=== PATIENT | female | born 2000 | race Two or more races ===

== ENCOUNTER 2025-06-28 21:27 | Emergency (ER) | payer MEDICAID, SELFPAY ==
[2025-06-28 21:28] VITALS: BMI 37.2
[2025-06-28 22:17] VITALS: BP 145/83; PULSE 60; RESP 18; TEMP 36.6; O2SAT 100
[2025-06-29 02:01] VITALS: BP 147/84; PULSE 61; RESP 18; TEMP 36.5; O2SAT 100
--- NOTE | 2025-06-29 02:22 | EDNOTE_ITS ---
ED Skin Abcess FB-RME/HPI General Chief complaint: Skin/Abscess/Foreign Body Stated complaint: STEPPED ON NAIL LEFT FOOT Time Seen by Provider: 06/29/25 02:12 Arrival date/time: 06/28/25 21:27 24F with no significant PMH presents to ED with L foot pain after she stepped on metal nail. Patient states she took the entire nail out. Patient has not had a tetanus shot in the past 5 years. Limitations: no limitations Related Data Previous Rx's ?Medication ?Instructions ?Recorded amoxicillin 875 mg-potassium 1 tab PO BID 5 days #10 t abs 06/29/25 clavulanate 125 mg tablet Allergies Allergy/AdvReac Type Severity Reaction Status Date / Time No Known Allergies Allergy Verified 04/14/19 19:42 Review of Systems Review of Systems Systems Reviewed: All systems reviewed, normal except as documented Constitutional Constitutional: Reports system reviewed and no additional complaints, except as documented, Denies fever(s) and Denies headache(s) ENT Ears, Nose, Mouth, and Throat: Denies disequilibrium and Denies headache(s) Cardiovascular Cardiovascular: Reports system reviewed and no additional complaints, except as documented, Denies chest pain and Denies dyspnea Respiratory Respiratory: Reports system reviewed and no additional complaints, except as documented, Denies cough and Denies dyspnea Gastrointestinal Gastrointestinal: Reports system reviewed and no additional complaints, except as documented, Denies abdominal pain, Denies nausea and Denies vomiting Integumentary/Breasts Skin/Breast: Reports as per HPI and Reports skin pain Neurologic Neurologic: Reports system reviewed and no additional complaints, except as documented, Denies confusion, Denies disequilibrium and Denies headache(s) Psychiatric Psychiatric: Denies confusion Past Medical History Social History SMOKING STATUS: Never smoker ED Exam General Limitations: Present no limitations General appearance: Present alert and in no apparent distress Head Head exam: Present atraumatic Eye Eye exam: Present normal appearance, PERRL and EOMI ENT ENT exam: Present normal exam, normal oropharynx and mucous membranes moist Neck Neck exam: Present normal inspection, full ROM and trachea midline Chest Chest inspection: Present normal inspection and symmetric chest wall rise Respiratory Respiratory exam: Present normal lung sounds bilaterally Cardiovascular Cardiovascular exam: Present regular rate, normal rhythm and normal heart sounds Abdominal Exam Abdominal exam: Present soft and normal bowel sounds Extremities Exam Extremities exam: Present full ROM Expanded Lower Extremity Exam Foot/toe exam: Present full ROM and puncture wound (L sole) Back Exam Back exam: Present normal inspection and full ROM Neurological Exam Neurological exam: Present alert, oriented X3 and CN II-XII intact Psychiatric Psychiatric exam: Present normal affect and normal mood Skin Skin exam: Present warm, dry, intact and normal color Course Quality Measures none Orders Category Date Time Status TET,DIP/PERT AC (Adult)-Tdap [Boostrix Adult (Tdap) Med 06/29/25 02:12 Discontinued Vacc] 0.5 ml IMI .ONCE ONE Vital Signs Vital signs: Vital Signs Temperature 97.8 F 06/28/25 22:17 Pulse Rate 60 06/28/25 22:17 Respiratory Rate 18 06/28/25 22:17 Blood Pressure 145/83 H 06/28/25 22:17 Pulse Oximetry (%) 100 06/28/25 22:17 Oxygen Delivery Method Room Air 06/28/25 22:17 O2 at 100% on RA and WNLs Skin / Abscess / Foreign Body MDM Narrative MDM Narrative:: 24F with no significant PMH presents to ED with L foot pain after she stepped on metal nail. Patient states she took the entire nail out. Patient has not had a tetanus shot in the past 5 years. Physical exam reveals puncture wound on L sole. No obvious redness or swelling. Patient is afebrile, calm, and alert. Tdap and ABX prophylaxis given. Patient data External records reviewed:: [facility] previous records Clinical information provided by:: patient Social determinants that could affect healthcare access:: none Patient has the following chronic illnesses:: none How is presenting disease/condition affected by chronic disease/condition?: no chronic disease Evaluation data The following diagnostics were reviewed and interpreted by me:: other (specify) (none) Lab and/or radiology exams considered but not ordered:: not ordered Interpretation Summary: n/a Medications / Prescriptions Medications or Prescriptions considered but not ordered:: ordered Medication administrations:: Medication Administration History Discontinued Medications Diphtheria/Tetanus/Acell Pertussis (Diphth,Pertuss(Acell),Tet Vac 0.5 Ml Syr- Adult) 0.5 ml IMi .ONCE ONE Stop: 06/29/25 02:13 above Consultations Consultation(s) initiated? (list below): No Diagnosis Skin/Abscess Differential Diagnosis: abscess of skin or subcutaneous tissue, viral exanthem, dermatophytosis, urticaria, herpes zoster, allergic reaction to drug, cellulitis, eczema, insect bites, impetigo and contact dermatitis Most likely diagnosis given after review of the tests above:: puncture wound of foot Admission Indicated Admission indicated?: not indicated Admission Request Was there a request for admission?: No Disposition Plan Disposition Plan: Discharge Discharge Attestation Discharge Attestation: The patient and all family members were given an opportunity to ask questions and understood the discharge instructions. Discharge instructions specifically effects, indications for sooner follow up or return to the emergency department, and the expected course of current diagnosis. Patient condition: Stable Discharge Plan Plan Patient Disposition: HOME (Self Care) Discharge Disposition comment: Stable Prescriptions/Referrals Prescriptions/Med Rec: New amoxicillin-pot clavulanate 875-125 mg tablet 1 tab PO BID 5 Days Qty: 10 0RF Problem List Clinical Impression: Puncture wound of foot Patient/Caregiver Discharge Instructions Education Materials: ED Puncture Wound (Foot) Additional Instructions: Please follow-up with PCP within 24-48 hours and return immediately if symptoms worsen. Print Language: Micronesian Stand Alone Forms: Patient Portal Info Letter RADU/KASSIE Supervising Physician LUKE Supervising Physician: Dr. Barrett
[2025-06-29] MEDS: DIPHTH,PERTUSS(ACELL),TET VAC 0.5 ML SYR- ADULT IMi (02:35)
== END 2025-06-29 02:40 | disposition home or self-care (01) ==
PROVIDERS: Emergency Provider Emergency Medicine
DX: S91.332A Puncture wound without foreign body, left foot, initial encounter (principal); W45.0XXA Nail entering through skin, initial encounter; Z23 Encounter for immunization
CPT/HCPCS: 90471; 90715; 99281

== ENCOUNTER 2025-10-20 19:43 | Emergency (ER) | payer MEDICAID, SELFPAY ==
[2025-10-20 19:45] VITALS: BMI 38.7
[2025-10-20 20:04] VITALS: BP 140/91; PULSE 67; RESP 18; TEMP 37.1; O2SAT 99
--- NOTE | 2025-10-20 20:10 | XR_ITS ---
Examination: Hand, right 3 views Technique: Hand AP, oblique, lateral 3 views Date and time of exam: October 20, 2025, 2008 hours INDICATIONS: Injury to the hand today, hand pain. FINDINGS: Acute impacted fracture fifth metacarpal neck No foreign body No dislocation IMPRESSION: Acute impacted angulated fracture fifth metacarpal neck
[2025-10-20 21:06] LABS: Collection Type, Urine Clean Catch
--- NOTE | 2025-10-20 21:10 | XR_ITS ---
Examination: Complete OB ultrasound, less than 14 weeks, transabdominal Date and time of exam: October 20, 2025, 2132 hours INDICATIONS: Pelvic cramping beginning yesterday Technique: Obstetrical ultrasound images less than 14 weeks performed via transabdominal imaging Findings: A normal shaped single intrauterine gestation is present in the uterus. Uterus 8.1 cm, intrauterine gestational sac 0.4 cm corresponds to 5 weeks 1 day gestational age No pole, no cardiac activity Right ovary 4.5 cm arterial flow 36 mm cyst Left ovary 2.1 cm arterial flow IMPRESSION: Empty intrauterine gestational sac corresponding to 5 weeks 1 day gestational age, recommend continued short-term follow-up to document viability
[2025-10-20 21:11] LABS: Basophils # (Auto) 0.0 Thou/mm3 (0.0-0.2); Basophils % (Auto) 0 % (0-2.5); Eosinophils # (Auto) 0.1 Thou/mm3 (0.0-0.5); Eosinophils % (Auto) 1 % (0-10); Hematocrit 37.5 % (36.0-46.0); Hemoglobin 12.9 g/dL (12.0-16.0); Immature Granulocytes Auto 0.03 Thou/mm3 (0.00-0.00); Lymphocytes # (Auto) 2.5 Thou/mm3 (1.0-4.8); Lymphocytes % (Auto) 25 % (10-50); Mean Corpuscular HGB Conc 34.4 g/dl (31.0-37.0); Mean Corpuscular Hemoglobin 30.0 pg (25.0-35.0); Mean Corpuscular Volume 87 fL (80-100); Monocytes # (Auto) 0.6 Thou/mm3 (0.0-0.8); Monocytes % (Auto) 7 % (0-12); Neutrophils # (Auto) 6.5 Thou/mm3 (1.8-7.7); Neutrophils % (Auto) 67 % (37-80); Nucleated Red Blood Cell # 0.00 Thou/mm3 (0.00-0.00); Nucleated Red Blood Cell % 0 /100 WBC (0); Platelet Count 313 Thou/mm3 (140-440); RDW Standard Deviation 40.8 fL (36.4-46.3); Red Blood Count 4.30 Miln/mm3 (4.00-5.20); White Blood Count 9.7 Thou/mm3 (3.6-11.0)
[2025-10-20 21:15] LABS: HCG Qualitative,Urine Positive
[2025-10-20 21:21] LABS: Amorphous Crystals,Urine Present (Absent); Bacteria,Urine Rare; Bilirubin,Urine Negative (Negative); Blood,Urine Negative (Negative); Clarity,Urine Clear (Clear/Hazy); Color,Urine Lt-Yellow (Lt Yel-Yel); Glucose, Urine Negative (Negative); Ketones,Urine Negative (Negative); Leukocyte Esterase,Urine Positive (Negative); Nitrite,Urine Negative (Negative); PH,Urine 6.0 (5.0-7.0); Protein,Urine Negative (Neg - Trace); RBC,Urine 3 /hpf (0-3); Specific Gravity,Urine 1.009 (1.001-1.035); Squamous Epithelial Cell,Urine 7 /hpf (0-5); Urobilinogen,Urine Negative mg/dL (0.0-1.0); WBC,Urine 2 /hpf (0-5)
[2025-10-20 21:37] LABS: Alanine Aminotransferase 35 U/L (10-49); Albumin, Serum 4.6 gm/dL (3.5-5.0); Albumin/Globulin Ratio 1.6 (1.2-2.2); Alkaline Phosphatase 114 U/L (46-116); Anion Gap 11 (7-16); Aspartate Amino Transferase 26 U/L (0-34); BUN/Creatinine Ratio 12 Ratio (12-20); Bilirubin,Total 0.2 mg/dL (0.3-1.2); Blood Urea Nitrogen 7 mg/dL (9-23); Calcium 9.2 mg/dL (8.3-10.6); Calcium (Corrected) 9.2 mg/dL (8.5-10.1); Carbon Dioxide 22.4 mMol/L (20.0-31.0); Chloride 108 mMol/L (98-107); Creatinine (Component) 0.6 mg/dL (0.6-1.3); Estimated Creatinine Clearance 162.4 mL/min (>60); Globulin 2.8 gm/dL (2.3-3.5); Glucose 103 mg/dL (74-106); Lipase 37 U/L (12-53); Osmolality,Calculated 279 (275-295); Potassium 3.5 mMol/L (3.4-5.1); Sodium 141 mMol/L (136-145); Total Protein 7.4 gm/dL (5.7-8.2); eGFR > 60 See Note
[2025-10-20 21:53] LABS: Beta HCG,Quantitative 1651 mIU/mL (<5.0)
[2025-10-20 23:16] VITALS: BP 139/90; PULSE 69; RESP 20; TEMP 37.2; O2SAT 100
--- NOTE | 2025-10-20 23:25 | EDNOTE_ITS ---
Upper Extremity Injury RME/HPI General Chief Complaint: Hand/Wrist Problems Stated Complaint: RIGHT HAND INJURY Time Seen by Provider: 10/20/25 19:44 Arrival date/time: 10/20/25 19:43 This is a case of 35-year-old female with no medical history came in in the emergency room due to right hand injury patient was supposed to be punching a punching bag and accidentally missed the punching bag and hit a metal part of the punching sustaining pain swelling on the right dorsal hand patient also stated that she is having pelvic pain she is possible she took a test today and it went to positive 1 para 0 denies any vaginal bleeding vaginal discharge fever chills nausea vomiting persistent of the pain thus patient decided to sought consult here in the emergency ROOM Limitations: no limitations Related Data Allergies Allergy/AdvReac Type Severity Reaction Status Date / Time No Known Allergies Allergy Verified 10/20/25 19:44 Review of Systems Review of Systems Systems Reviewed: All systems reviewed, normal except as documented Constitutional Constitutional: Reports system reviewed and no additional complaints, except as documented and Reports as per HPI Cardiovascular Cardiovascular: Reports system reviewed and no additional complaints, except as documented and Reports as per HPI Respiratory Respiratory: Reports system reviewed and no additional complaints, except as documented and Reports as per HPI Gastrointestinal Gastrointestinal: Reports system reviewed and no additional complaints, except as documented and Reports as per HPI Musculoskeletal Musculoskeletal: Reports system reviewed and no additional complaints, except as documented and Reports as per HPI Neurologic Neurologic: Reports system reviewed and no additional complaints, except as documented and Reports as per HPI Past Medical History Social History SMOKING STATUS: Never smoker ED Exam General Limitations: Present no limitations General appearance: Present alert, in no apparent distress and other (Patient is awake alert oriented not in distress nontoxic looking well-hydrated well- nourished) Head Head exam: Present atraumatic, normocephalic and normal inspection Eye Eye exam: Present normal appearance, PERRL and EOMI ENT ENT exam: Present normal exam, normal oropharynx and mucous membranes moist Neck Neck exam: Present normal inspection, full ROM and trachea midline; Absent tenderness, meningismus, lymphadenopathy or thyromegaly Chest Chest inspection: Present normal inspection and symmetric chest wall rise; Absent tenderness, rash or abscess Respiratory Respiratory exam: Present normal lung sounds bilaterally; Absent respiratory distress, wheezes, stridor, accessory muscle use or prolonged expiratory phase Cardiovascular Cardiovascular exam: Present regular rate, normal rhythm and normal heart sounds; Absent bradycardia, tachycardia, irregular rhythm, systolic murmur or diastolic murmur Abdominal Exam Abdominal exam: Present soft, normal bowel sounds and other (Gravid uterus normal active bowel sounds); Absent distention, tenderness, guarding, rebound, rigidity, diminished bowel sounds, hyperactive bowel sounds, hypoactive bowel sounds or organomegaly Extremities Exam Extremities exam: Present normal inspection and full ROM Expanded Upper Extremity Exam Forearm/Wrist exam: Present normal inspection and full ROM; Absent tenderness, swelling, abrasion, laceration, ecchymosis, deformity, crepitus, dislocation, erythema, tenderness over anatomical snuff box or pain with axial thumb loading Hand exam: Present tenderness, swelling, deformity and other (Noted moderate tenderness on palpation on the lateral side dorsal aspect right hand with angular deformity mild swelling ROM limited pulses were full and equal capillary refill less than 2 seconds sensory intact no snuffbox tenderness); Absent abrasion, laceration, skin avulsion, ecchymosis, crepitus, dislocation, erythema, amputation, nail avulsion or subungual hematoma Back Exam Back exam: Present normal inspection and full ROM Neurological Exam Neurological exam: Present alert, oriented X3, CN II-XII intact, normal gait and reflexes normal; Absent motor sensory deficit Psychiatric Psychiatric exam: Present normal affect and normal mood Skin Skin exam: Present warm, dry, intact, normal color and other (Excellent skin turgor) Course Quality Measures none Orders Category Date Time Status US OB <= 14 weeks fetus Stat Exams 10/20/25 21:10 Completed XR hand RT 2V Stat Exams 10/20/25 20:10 Completed Beta HCG,Quantitative Stat Lab 10/20/25 20:35 Completed CBC Stat Lab 10/20/25 20:35 Completed Comprehensive Metabolic Panel Stat Lab 10/20/25 20:35 Completed HCG Qualitative,Urine Stat Lab 10/20/25 20:43 Completed Lipase Stat Lab 10/20/25 20:35 Completed Urinalysis Stat Lab 10/20/25 20:43 Completed Vital Signs Vital signs: Vital Signs Temperature 98.8 F 10/20/25 20:04 Pulse Rate 67 10/20/25 20:04 Respiratory Rate 18 10/20/25 20:04 Blood Pressure 140/91 H 10/20/25 20:04 Pulse Oximetry (%) 99 10/20/25 20:04 Oxygen Delivery Method Room Air 10/20/25 20:04 Oxygen saturation is 99% in room air Extremity Injury MDM Narrative MDM Narrative:: This is a case of 35-year-old female with no medical history came in in the emergency room due to right hand injury patient was supposed to be punching a punching bag and accidentally missed the punching bag and hit a metal part of the punching sustaining pain swelling on the right dorsal hand patient also stated that she is having pelvic pain she is possible she took a test today and it went to positive 1 para 0 denies any vaginal bleeding vaginal discharge fever chills nausea vomiting persistent of the pain thus patient decided to sought consult here in the emergency ROOM physical examination patient is awake alert oriented not in distress nontoxic looking well-hydrated well-nourished abdominal exam gravid uterus normal active bowel sounds no guarding no rebound no rigidity no tenderness patient noted to have moderate tenderness and swelling on the lateral aspect of the right hand no crepitation with mild angular deformity no redness mild swelling ROM is limited pulses were full and equal capillary refill less than 2 seconds sensory intact the rest of the physical examination neurological exam is normal and unremarkable x-ray of the right hand showed Acute impacted angulated fracture fifth metacarpal neck patient blood test showed no leukocytosis no anemia kidney and liver function is normal no electrolyte imbalance urinalysis is normal patient is O+ patient noted beta-hCG 1651 and ultrasound Empty intrauterine gestational sac corresponding to 5 weeks 1 day gestational age, at this point I think the patient is too early cannot totally rule out ectopic months since the spontaneous or early or threatened I discussed with the patient importance to return in the emergency room next week for repeat beta-hCG and pelvic ultrasound to confirm the location of the patient was applied a ulnar gutter splint for the metacarpal fracture patient tolerated well neurovascular intact she was advised to follow- up with PCP to be referred to orthopedic surgeon for further evaluation and treatment of metacarpal fracture she is also advised to to see a OB managed services consultant for further evaluation and treatment of abdominal pain in and checkup continue multivitamins for any worsening symptoms or any emergent concern return precaution in the ER is advised Patient was discharged with comfortable condition walking with stable gait. Pat ient verbalized no further complains explained diagnosis and answered patient question. Patient is comfortable with the proposed management plan including the need to follow up with his/her primary care physician and any specialist if applicable Discussed patient for any urgent condition or worsening sx, He/She needed to go to emergency room immediately or call 911. Patient acknowledge the responsibility to follow up as instructed and to monitor her/his symptoms. For any persistence of the symptoms for more than 3-5 days return precaution advised. Discussed the result of the test and was given printed discharge instruction Patient data External records reviewed:: [facility] previous records Clinical information provided by:: patient Social determinants that could affect healthcare access:: none Patient has the following chronic illnesses:: None How is presenting disease/condition affected by chronic disease/condition?: no chronic disease Evaluation data The following diagnostics were reviewed and interpreted by me:: radiology exam(s) Lab and/or radiology exams considered but not ordered:: Reviewed Interpretation Summary: Reviewed Medications / Prescriptions Medications or Prescriptions considered but not ordered:: Given Medication administrations:: Given Consultations Consultation(s) initiated? (list below): No Diagnosis Upper Extremity Injury Differential Diagnosis: fracture of wrist, finger sprain and fracture of hand Most likely diagnosis given after review of the tests above:: Metacarpal fracture abdominal pain in Admission Indicated Admission indicated?: not indicated Explain why admission is indicated or not indicated:: Not indicated Admission Request Was there a request for admission?: No Admission Attestation Admission request attestation: Not indicated Disposition Plan Disposition Plan: Discharge Discharge Attestation Discharge Attestation: The patient and all family members were given an opportunity to ask questions and understood the discharge instructions. Discharge instructions specifically effects, indications for sooner follow up or return to the emergency department, and the expected course of current diagnosis. Patient condition: Stable Discharge Plan Plan Patient Disposition: HOME (Self Care) Patient condition on transfer: Stable Prescriptions/Referrals Referrals: Kenrick Rodriguez MD [Primary Care Provider, Family Practice] - In 1 week Problem List Clinical Impression: Closed fracture of fifth metacarpal bone of right hand, Abdominal pain during Patient/Caregiver Discharge Instructions Education Materials: ED Abdominal Pain, Early , ED Closed Hand Fracture (Adult) Additional Instructions: Follow-up with your primary care physician in 2 days for reevaluation and to be referred to orthopedic surgeon for further evaluation and treatment of fifth metacarpal fracture of the right hand it is also important to see an OB managed services consultant for further evaluation and treatment of your abdominal pain in and to repeat the level of beta-hCG and pelvic ultrasound in 1 week to confirm the location of for any worsening symptoms or any emergent concern vaginal bleeding vaginal discharge abdominal pain fever chills nausea vomiting return to the emergency room immediately or call 911 you can only take Tylenol as needed for pain continue to take multivitamins keep hydrated ice pack every 2 hours for 30 minutes for 24 hours then alternate with warm compress elevate to decrease swelling keep the splint in place until cleared by your primary care physician Print Language: Syrian Stand Alone Forms: Kamila Award Info., Patient Portal Info Letter PA/SENIOR ESTIMATOR Supervising Physician PA/SENIOR ESTIMATOR Supervising Physician: Dr. Chau
== END 2025-10-20 23:18 | disposition home or self-care (01) ==
PROVIDERS: Nurse Practitioner Family; Emergency Provider Emergency Medicine; PCP Family Medicine
DX: O9A.211 Injury, poisoning and certain other consequences of external causes complicating pregnancy, first trimester (principal); S62.336A Displaced fracture of neck of fifth metacarpal bone, right hand, initial encounter for closed fracture; R10.20 Pelvic and perineal pain unspecified side; W22.8XXA Striking against or struck by other objects, initial encounter; Y93.71 Activity, boxing; Z3A.01 Less than 8 weeks gestation of pregnancy
CPT/HCPCS: 29125; 36415; 73120; 73130; 76801; 80053; 81001; 81025; 83690; 84702; 85025; 99283

== ENCOUNTER 2025-10-26 18:45 | Emergency (ER) | payer MEDICAID, SELFPAY ==
[2025-10-26 19:32] VITALS: BP 130/82; PULSE 70; RESP 20; TEMP 36.8; O2SAT 99; BMI 38.7
--- NOTE | 2025-10-26 19:41 | XR_ITS ---
Examination: Complete OB ultrasound, less than 14 weeks, transabdominal Date and time of exam: October 26, 2025, 0818 hours INDICATIONS: Positive test October 20, 2025, October 20, 2025 pelvic sonogram empty intrauterine gestational sac 5 weeks 1 day gestational age Technique: Obstetrical ultrasound images less than 14 weeks performed via transabdominal imaging Findings: Uterus 8.4 cm, intrauterine gestational sac 1.2 cm corresponds to 6 weeks 0 days gestational age No pole, no cardiac activity Right ovary 5.0 cm arterial flow 4.0 cm cyst Left ovary 2.3 cm arterial flow IMPRESSION: Empty intrauterine gestational sac corresponding to 6 weeks 0 days gestational age, recommend transvaginal pelvic sonography follow-up
[2025-10-26 21:05] LABS: Beta HCG,Quantitative 11491 mIU/mL (<5.0)
--- NOTE | 2025-12-14 12:55 | PD.EDPREG ---
ED OB Contraction Preg RMI/HPI General Chief complaint: Recheck/Abnormal Lab/Rx Stated complaint: 6 weeks OB, needs US Time Seen by Provider: 10/26/25 18:54 Arrival date/time: 10/26/25 18:45 This is a case of 25-year-old female who came into the emergency room for reevaluation and to have repeat beta-hCG and pelvic ultrasound patient was seen here few days ago and was treated for possible and blighted ovum patient denies any OB symptoms no abdominal pain no vaginal bleeding vaginal discharge or vaginal spotting Limitations: no limitations Related Data Home Medications ?Medication ?Instructions ?Recorded ?Confirmed No Known Home Medications 10/28/25 10/28/25 Allergies Allergy/AdvReac Type Severity Reaction Status Date / Time No Known Allergies Allergy Verified 10/28/25 11:11 Review of Systems Review of Systems Systems Reviewed: All systems reviewed, normal except as documented Past Medical History Social History SMOKING STATUS: Never smoker SECOND HAND EXPOSURE: No ED Exam General Limitations: Present no limitations General appearance: Present alert, in no apparent distress and other (Patient is awake alert oriented not in distress nontoxic looking well-hydrated well-nourished) Head Head exam: Present atraumatic Eye Eye exam: Present normal appearance, PERRL and EOMI ENT ENT exam: Present normal exam, normal oropharynx and mucous membranes moist Neck Neck exam: Present normal inspection, full ROM and trachea midline Chest Chest inspection: Present normal inspection and symmetric chest wall rise Respiratory Respiratory exam: Present normal lung sounds bilaterally Cardiovascular Cardiovascular exam: Present regular rate, normal rhythm and normal heart sounds Abdominal Exam Abdominal exam: Present soft, normal bowel sounds and other (Gravid uterus); Absent distention, tenderness, guarding, rebound, rigidity, diminished bowel sounds, hyperactive bowel sounds, hypoactive bowel sounds or organomegaly Extremities Exam Extremities exam: Present normal inspection and full ROM Back Exam Back exam: Present normal inspection and full ROM Neurological Exam Neurological exam: Present alert, oriented X3, CN II-XII intact, normal gait and reflexes normal; Absent motor sensory deficit Psychiatric Psychiatric exam: Present normal affect and normal mood Skin Skin exam: Present warm, dry, intact and normal color Course Quality Measures none Orders Category Date Time Status US OB <= 14 weeks fetus Stat Exams 10/26/25 19:41 Completed Beta HCG,Quantitative Stat Lab 10/26/25 19:52 Completed Vital Signs Vital signs: Vital Signs Temperature 98.3 F 10/26/25 19:32 Pulse Rate 70 10/26/25 19:32 Respiratory Rate 20 10/26/25 19:32 Blood Pressure 130/82 10/26/25 19:32 Pulse Oximetry (%) 99 10/26/25 19:32 Oxygen Delivery Method Room Air 10/26/25 19:32 vs stable OB/Uterine Contractions MDM Narrative MDM Narrative:: Patient was discharged with comfortable condition walking with stable gait. Patient verbalized no further complains explained diagnosis and answered patient question. Patient is comfortable with the proposed management plan including the need to follow up with his/her primary care physician and any specialist if applicable Discussed patient for any urgent condition or worsening sx, He/She needed to go to emergency room immediately or call 911. Patient acknowledge the responsibility to follow up as instructed and to monitor her/his symptoms. For any persistence of the symptoms for more than 3-5 days return precaution advised. Discussed the result of the test and was given printed discharge instruction Patient data External records reviewed:: [facility] previous records Clinical information provided by:: patient Social determinants that could affect healthcare access:: none (none) Patient has the following chronic illnesses:: none How is presenting disease/condition affected by chronic disease/condition?: no chronic disease Evaluation data The following diagnostics were reviewed and interpreted by me:: lab results and radiology exam(s) Lab and/or radiology exams considered but not ordered:: reviewed Interpretation Summary: reviewed Medications / Prescriptions Medications or Prescriptions considered but not ordered:: none Medication administrations:: none Consultations Consultation(s) initiated? (list below): No Diagnosis OB Contractions Differential Diagnosis: other (blughted ovum) Most likely diagnosis given after review of the tests above:: positive bilghted ovum Admission Indicated Admission indicated?: not indicated Explain why admission is indicated or not indicated:: not indicated Admission Request Was there a request for admission?: No Admission Attestation Admission request attestation: not indiacted Disposition Plan Disposition Plan: Discharge Discharge Attestation Discharge Attestation: The patient and all family members were given an opportunity to ask questions and understood the discharge instructions. Discharge instructions specifically effects, indications for sooner follow up or return to the emergency department, and the expected course of current diagnosis. Patient condition: Stable Discharge Plan Plan Patient Disposition: HOME (Self Care) Patient condition on transfer: Stable Prescriptions/Referrals Prescriptions/Med Rec: No Action No Known Home Medications Referrals: Kenrick Rodriguez MD [Primary Care Provider, Family Practice] - In 1 week Dewey Dinh MD [Physician, CHEMIST ASSISTANT] - 10/28/25 Referral Note: For further evaluation and treatment of possible blighted ovum versus true Problem List Clinical Impression: Positive test, Blighted ovum Patient/Caregiver Discharge Instructions Education Materials: Understanding Blighted Ovum, ED , New Dx Additional Instructions: It is very important to return in 2 days for reevaluation and further repeat beta-hCG and pelvic ultrasound follow-up with your primary care physician in 2 days for reevaluation and to be referred to OB patient financial rep for further evaluation and treatment of possible blighted ovum or through worsening symptoms or any emergent concern return precaution in the ER is advised Print Language: Portuguese Stand Alone Forms: Kamila Award Info., Patient Portal Info Letter PA/KASSIE Supervising Physician RADU/KASSIE Supervising Physician: Dr Barrett
== END 2025-10-26 21:48 | disposition home or self-care (01) ==
PROVIDERS: Nurse Practitioner Family; Emergency Provider Emergency Medicine; PCP Family Medicine
DX: O02.0 Blighted ovum and nonhydatidiform mole (principal)
CPT/HCPCS: 36415; 76801; 84702; 99282

== ENCOUNTER 2025-10-28 11:00 | Outpatient (AMB) | payer MEDICAID, SELFPAY ==
--- NOTE | 2025-10-28 11:03 | AMB.GYNCLNOT ---
Vital Signs 10/28/25 11:10 Height 1.6 m Height Method Stated Weight 99.564 kg Weight Measurement Method Standing Scale BMI 38.9 BP 135/88 H Blood Pressure Source Automatic Cuff Blood Pressure Location Left Upper Arm Position Sitting Respiration 18 Pulse 78 Pulse Source Monitor Temp 98 F Temp Source Oral Pulse Oximetry (%) 98 Oxygen Delivery Method Room Air Allergies/Home Meds Allergies & Medications Allergies No Known Allergies Allergy (Verified 10/28/25 11:11) Medication Reconciliation No Known Home Medications 10/28/25 [History Confirmed 10/28/25] Intake Visit Data Collection New Patient or Established: Established Patient (seen at [facility] within 3 years) Reason for Visit:: ER FOLLOW UP Seen by Clinical Staff ONLY (RN/MA): No 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 Required: No Do You Feel Safe at Home: Yes Authorities Contacted: N/A PCP or OBGYN visit in last 3 months: Yes Date of Last PCP or OBGYN visit: 10/26/25 Hx Now: Yes Are you currently on any form of Control: No Last menstrual period: 09/14/25 Pain Present Currently: No Pain Scale Used: Oliva-Sherwood/Numerical Pain scale:: 0 Smoking Status Smoking Status: Never smoker Immunizations Flu Vaccine in the Last 12 Months: No Flu Vaccine Exclusion Criteria: No Exclusion Criteria Marketing Database Analyst history Marketing Database Analyst History Menstrual regularity: regular Flow: normal Monthly: Yes Age at menarche: 13 Menopausal: No Currently sexually active: Yes If not currently sexually active, have you ever been sexually active: No Questionnaires Covid-19 Vaccine Questionnaire Has patient been vacinated for Covid-19 Have you been vacinated for Covid-19: Yes PHQ-9 PHQ-2 Over the last 2 weeks, how often have you been bothered by any of the following problems? 1. Little interest or pleasure in doing things: not at all 2. Feeling down, depressed, or hopeless: not at all Total score: 0 PHQ-9 3. Trouble falling or staying asleep, or sleeping too much: Not at all 4. Feeling tired or having little energy: Not at all 5. Poor appetite or overeating: Not at all 6. Feeling bad about yourself - or that you are a failure or have let yourself or your family down: Not at all 7. Trouble concentrating on things, such as reading the newspaper or watching television: Not at all 8. Moving or speaking so slowly that other people could have noticed? - Or the opposite - being so fidgety or restless that you have been moving around a lot more than usual: not at all 9. Thoughts that you would be better off or of hurting yourself in some way: Not at all Total score: 0 If you checked off any problems, how difficult have these problems made it for you to do your work, take care of things at home, or get along with other people?: not difficult at all Source: Developed by Drs. Isac Harrison, Chrissy Marx, Jose M Vela and colleagues, with an educational stacia from [employer]. Depression screen completed yes Social History Living Situation History Marital Status: Single Lives With: Family Housing: House Tobacco History Smoking Status: Never smoker Second Hand Smoke Exposure: No Alcohol History Alcohol Intake: Never Domestic Abuse History Do You Feel Safe at Home: Yes History of Present Illness HPI Narrative Nadiya Daniel is presenting for follow-up after presenting to the emergency department on October 20, 2025 with pelvic cramping in early . Her last menstrual period was September 14. She initially presented with pelvic cramping and was found to have a normal shaped single intrauterine gestation with an 8.1 centimeter uterus and a 0.4 centimeter sac corresponding to 5 weeks and 1 day gestation with no pole identified. She returned to the emergency department on October 26, 2025 for follow-up evaluation. Currently, the patient reports no bleeding. Obstetric History: - Current : - Last menstrual period: September 14, 2025 - Gestational age: Approximately 6 weeks by last menstrual period - Presenting with suspected failure/blighted ovum based on ultrasound findings - Pelvic ultrasound (10-20-2025): Normal shaped single intrauterine gestation, uterus 8.1 cm, gestational sac 0.4 cm corresponding to 5 weeks 1 day, no pole identified, no evidence of ectopic - Beta hCG (10-20-2025): 1650 - Pelvic ultrasound (10-26-2025): Uterus 8.4 cm, intrauterine sac 1.2 cm corresponding to 6 weeks 0 days, right ovary 5 cm with 4 cm cyst, left ovary 2.3 cm, crown rump length 7 mm with no heart rate detected - Beta hCG (10-26-2025): 11,491 Exam General General Appearance: alert, in no apparent distress and healthy appearing Head Head exam: atraumatic Neck Neck exam: Present normal inspection and trachea midline Chest Chest inspection: Present normal inspection and symmetric chest wall rise External exam: Present normal external exam; Absent tenderness Neuro Neurological exam: Present oriented X3 Psych Psychiatric exam: Present normal affect and normal mood Office Procedures O[facility] Clinic LOC & Office Proc's Nursing/Assessment Patient Status: Established Patient OB Clinic Nursing Assessment: Medication Reconciliation, Update PMH in EMR and Vital Signs OB Clinic Coordination of Care: Complex Care and Chronic Disease 1-5, Consent,records obtained, informed consent, Education Simp Pt/Fam, Lab and Imaging orders, Results/Orders obtained and Staff clarify orders Established Patient Charge Established Patient Point Assignment: 105 Established Patient Point Charge: EP Level 3 (80-115) Assessment & Plan Diagnosis / Problem List (1) Blighted ovum: Status: Acute Plan Failed /blighted ovum Assessment: Patient presents with failed or blighted ovum based on serial ultrasound findings and hormone levels. Initial presentation on 10-20-2025 showed single intrauterine gestation with 8.1 cm uterus, 0.4 cm sac corresponding to 5 weeks 1 day, no pole, and beta hCG of 1650. Follow-up on 10-26-2025 demonstrated minimal growth with uterus measuring 8.4 cm, intrauterine sac 1.2 cm corresponding to 6 weeks 0 days, and beta hCG of 11,491. Based on last menstrual period of September 14, patient is currently at 6 weeks 4 days gestation. Findings meet criteria for failure with crown rump length of 7 mm or greater without heart rate and absence of pole on repeat ultrasound. The outer sac formed but inner part that develops into the baby did not form, consistent with blighted ovum. Patient reports no bleeding currently. Plan: - Repeat abdominal and transvaginal ultrasound at least 72 hours from Tuesday's study - Repeat beta hCG level tomorrow morning at [facility] - Ultrasound authorization will be obtained through insurance, patient will be called with appointment - Ultrasound to be performed at [facility], patient will pickle solution maker paperwork [facility] - Call patient with results once available to determine next steps for intervention - If outpatient ultrasound unavailable due to [place] holidays, patient to present to ER for studies
[2025-10-28 11:10] VITALS: BP 135/88; PULSE 78; RESP 18; TEMP 36.6; O2SAT 98; BMI 38.9
== END 2025-10-28 11:38 | disposition home or self-care (01) ==
PROVIDERS: PCP Family Medicine; Referring Provider Family Medicine; Supervising Provider Obstetrics & Gynecology; Visit Provider Obstetrics & Gynecology
DX: O02.0 Blighted ovum and nonhydatidiform mole (principal)
CPT/HCPCS: 99213; G0463

== ENCOUNTER → 2025-11-04 | Outpatient (CLI) | payer MEDICAID, SELFPAY ==
--- NOTE | 2025-11-04 11:09 | XR_ITS ---
Examination: Complete OB ultrasound, less than 14 weeks, transabdominal Date and time of exam: November 04, 2025, 1117 hours INDICATIONS: Empty intrauterine gestational sac corresponding to 6 weeks 0 days gestational age October 26, 2025, pelvic cramping this week Technique: Obstetrical ultrasound images less than 14 weeks performed via transabdominal imaging Findings: A normal shaped single intrauterine gestation is present in the uterus. CRL 0.8 cm corresponds to 6 weeks 5 days gestational age Cardiac motion 121 bpm Subchorionic hemorrhage 15 x 9 x 18 mm Ultrasonographic survey of visible structures unremarkable. Amniotic fluid volume appears appropriate for this estimated gestational age. Right ovary 5.0 cm arterial flow 3.9 cm corpus luteum cyst Left ovary 2.7 cm arterial flow IMPRESSION: Viable intrauterine gestation 6 weeks 5 days.
--- NOTE | 2025-11-04 11:09 | XR_ITS ---
Examination: OB Transvaginal ultrasound of the pelvis, complete Technique: Transvaginal sonographic images pelvis performed using kelley scale imaging Exam date and time: November 04, 2025, 1136 hours INDICATIONS: Ultrasound October 26, 2025 empty intrauterine gestational sac 6 weeks 0 days, history pelvic cramping FINDINGS: Uterus 9.3 cm CRL 0.8 cm corresponds to 6 weeks 5 days gestational age Cardiac motion 120 bpm Subchorionic hemorrhage 25 x 9 x 23 mm Right ovary 5.0 cm arterial flow 36 mm corpus luteum cyst Left ovary 2.4 cm arterial flow IMPRESSION: Viable intrauterine gestation 6 weeks 5 days.
== END | disposition home or self-care (01) ==
PROVIDERS: PCP Family Medicine; Referring Provider Obstetrics & Gynecology; Visit Provider Obstetrics & Gynecology
DX: O02.0 Blighted ovum and nonhydatidiform mole (principal); O26.849 Uterine size-date discrepancy, unspecified trimester; Z3A.01 Less than 8 weeks gestation of pregnancy
CPT/HCPCS: 76801; 76817